=== PATIENT | female | born 1980 | race Hispanic/Latino ===

== ENCOUNTER 2022-10-29 20:47 | Emergency (ER) | payer OTHER ==
[~2022-10-29] VITALS: Ht 162.6 cm; Wt 90.3 kg
[2022-10-29] MEDS ORDERED: CLONIDINE HCL 0.1 MG TAB PO ONE (22:00)
[2022-10-29] MEDS ORDERED: CLONIDINE HCL 0.1 MG TAB ONE (22:26)
[2022-10-29] MEDS ORDERED: ONDANSETRON ODT4 MG PO ×2 (23:00→23:04)
[2022-10-29] MEDS ORDERED: NORVASC5 MG PO ×2 (23:00→23:03)
[2022-10-29] MEDS ORDERED: FIORICET-COD 51 EACH PO (23:04)
== END 2022-10-29 23:40 | disposition home or self-care (01) ==
LOC: FSED 20:55
DX: R51.9 Headache, unspecified (principal); I16.0 Hypertensive urgency
CPT/HCPCS: 70450; 80053; 85025; 99284